=== PATIENT | male | born 1945 | race Caucasian/White ===

== ENCOUNTER 2017-07-04 20:40 | Emergency (ER) | payer BC ==
[~2017-07-04] VITALS: Ht 185.4 cm; Wt 111.0 kg
[2017-07-04 20:42] VITALS: BP 202/103; PULSE 85; RESP 16; TEMP 98.2; O2SAT 96
[2017-07-04] MEDS ORDERED: GUAI1TAB18 (20:58)
[2017-07-04] MEDS ORDERED: CETI10CA3 (20:58)
[2017-07-04 21:04] VITALS: BP 165/92; PULSE 87; RESP 16; O2SAT 95
--- NOTE | 2017-07-04 21:05 | PD ---
HPI Chief Complaint: Complaint Time Seen by Provider: 20:55 Travel History International Travel<30 days: No Contact w/Intl Traveler<30days: No Traveled to known affect area: No History of Present Illness HPI 71-year-old male presents for evaluation of asymptomatic hematuria. Symptoms started this evening. He reports that there is large amount of blood-tinged urine this afternoon when he was urinating. He denies any dysuria, increased urinary frequency, flank pain, abdominal pain, nausea or vomiting, chest pain. He is not on any prescribed or [id number] anticoagulants. He reports that he has a history of BPH, underwent TURP procedure 9 years ago. He reports that very occasionally he will have some hematuria but never to this extent. 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 Sancho Haney. No other complaints at this time. PFSH Past Medical History Diminished Hearing: No Tetanus Vaccination: < 5 Years Influenza Vaccination: Yes Past Surgical History Prostatectomy: Yes (9 years ago) Social History Alcohol Use: No Tobacco Use: No Substance Use: No Allergies-Medications (Allergen,Severity, Reaction): Coded Allergies: No Known Allergies (Unverified , 07/04/17) Reported Meds & Prescriptions Reported Meds & Active Scripts Active Bactrim DS (Sulfamethoxazole-Trimethoprim) 800-160 Mg Tab 1 Tab PO BID Reported Zyrtec (Cetirizine HCl) 10 Mg Capsule Mucinex (Guaifenesin) 1,200 Mg Tab.er.12h 400 Review of Systems Except as stated in HPI: all other systems reviewed are Neg Physical Exam Narrative GENERAL: Well-developed well-nourished male in no acute distress SKIN: Warm and dry. HEAD: Atraumatic. Normocephalic. EYES: Pupils equal and round. No scleral icterus. No injection or drainage. ENT: No nasal bleeding or discharge. Mucous membranes pink and moist. NECK: Trachea midline. No JVD. CARDIOVASCULAR: Regular rate and rhythm. No murmur appreciated. RESPIRATORY: No accessory muscle use. Clear to auscultation. Breath sounds equal bilaterally. GASTROINTESTINAL: Abdomen soft, non-tender, nondistended. Hepatic and splenic margins not palpable. No CVA tenderness. MUSCULOSKELETAL: No obvious deformities. No clubbing. No cyanosis. No edema. NEUROLOGICAL: Awake and alert. No obvious cranial nerve deficits. Motor grossly within normal limits. Normal speech. PSYCHIATRIC: Appropriate mood and affect; insight and judgment normal. Data Data Last Documented VS Vital Signs Date Time Temp Pulse Resp B/P (MAP) Pulse Ox O2 Delivery O2 Flow Rate FiO2 07/04/17 21:04 87 16 165/92 (116) 95 Room Air 07/04/17 20:42 98.2 Orders Orders Complete Blood Count With Diff (07/04/17 20:59) Basic Metabolic Panel (Bmp) (07/04/17 20:59) Act Partial Throm Time (Ptt) (07/04/17 20:59) Prothrombin Time / Inr (Pt) (07/04/17 20:59) Urinalysis - C+S If Indicated (07/04/17 20:59) Urine Culture (07/04/17 21:30) Ceftriaxone Inj (Rocephin Inj) (07/04/17 22:15) Ed Discharge Order (07/04/17 22:10) Labs Laboratory Tests Test 07/04/17 21:10 07/04/17 21:30 White Blood Count 8.7 TH/MM3 Red Blood Count 4.70 MIL/MM3 Hemoglobin 14.9 GM/DL Hematocrit 42.2 % Mean Corpuscular Volume 89.7 FL Mean Corpuscular Hemoglobin 31.7 PG Mean Corpuscular Hemoglobin Concent 35.3 % Red Cell Distribution Width 13.1 % Platelet Count 179 TH/MM3 Mean Platelet Volume 9.0 FL Neutrophils (%) (Auto) 56.6 % Lymphocytes (%) (Auto) 27.1 % Monocytes (%) (Auto) 10.8 % Eosinophils (%) (Auto) 4.4 % Basophils (%) (Auto) 1.1 % Neutrophils # (Auto) 4.9 TH/MM3 Lymphocytes # (Auto) 2.4 TH/MM3 Monocytes # (Auto) 0.9 TH/MM3 Eosinophils # (Auto) 0.4 TH/MM3 Basophils # (Auto) 0.1 TH/MM3 CBC Comment DIFF FINAL Differential Comment Prothrombin Time 10.4 SEC Prothromb Time International Ratio 0.9 RATIO Activated Partial Thromboplast Time 27.7 SEC Blood Urea Nitrogen 20 MG/DL Creatinine 1.46 MG/DL Random Glucose 124 MG/DL Calcium Level 9.9 MG/DL Sodium Level 140 MEQ/L Potassium Level 4.1 MEQ/L Chloride Level 106 MEQ/L Carbon Dioxide Level 25.1 MEQ/L Anion Gap 9 MEQ/L Estimat Glomerular Filtration Rate 47 ML/MIN Urine Color DARK-RED Urine Turbidity CLOUDY Urine pH 6.0 Urine Specific [employer] M[employer] 1.017 Urine Protein 100 mg/dL Urine Glucose (UA) NEG mg/dL Urine Ketones 10 mg/dL Urine Occult Blood LARGE Urine Nitrite POS Urine Bilirubin NEG Urine Urobilinogen LESS THAN 2.0 MG/DL Urine Leukocyte Esterase MOD Urine RBC /hpf Urine WBC /hpf Urine Bacteria MOD /hpf Microscopic Urinalysis Comment CULTURE INDICATED MDM Medical Decision Making Medical Screen Exam Complete: Yes Emergency Medical Condition: Yes Medical Record Reviewed: Yes Differential Diagnosis Hematuria, anemia, renal stone, malignancy Narrative Course Plan is for basic lab work, urinalysis. Laboratories reassuring. Urinalysis reveals cloudy turbidity, 100 protein, large blood, positive nitrites, innumerable WBCs, moderate bacteria and therefore urine culture has been sent. He has no symptoms to suggest prostatitis. The patient be given a dose of Rocephin here and discharged with Bactrim pending culture and sensitivity report. Diagnosis Primary Impression: Hematuria Qualified Codes: R31.0 - Gross hematuria Additional Impression: Urinary tract infection Qualified Codes: N30.01 - Acute cystitis with hematuria Additional Instructions: Medications prescribed. Stay well hydrated. Follow up close with urology and return for any acutely new or worsening symptoms. Med/Other Pt SpecificInfo: Prescription(s) given Scripts Sulfamethoxazole-Trimethoprim (Bactrim DS) 800-160 Mg Tab 1 TAB PO BID for Infection, #20 TAB 0 Refills Prov: Fred Victoria MD 07/04/17 Disposition: 01 DISCHARGE HOME Condition: Stable Nghia Perez Jul 04, 2017 21:04
[2017-07-04 21:48] LABS: AUTOMATED NEUTROPHIL # 4.9 TH/MM3 (1.8-7.7); BASOPHIL # 0.1 TH/MM3 (0-0.2); BASOPHIL % 1.1 % (0.0-2.0); EOSINOPHIL # 0.4 TH/MM3 (0-0.4); EOSINOPHIL % 4.4 % (0.0-4.0); HEMATOCRIT 42.2 % (39.0-51.0); HEMOGLOBIN 14.9 GM/DL (13.0-17.0); LYMPH % 27.1 % (9.0-44.0); LYMPHOCYTE # 2.4 TH/MM3 (1.0-4.8); MEAN CELL VOLUME 89.7 FL (80.0-100.0); MEAN CORPUSCULAR HEMOGLOBIN 31.7 PG (27.0-34.0); MEAN CORPUSCULAR HGB CONC 35.3 % (32.0-36.0); MONO % 10.8 % (0.0-8.0); MONOCYTE # 0.9 TH/MM3 (0-0.9); NEUT % 56.6 % (16.0-70.0); PLATELET COUNT 179 TH/MM3 (150-450); RED CELL DISTRIBUTION WIDTH 13.1 % (11.6-17.2); WHITE BLOOD COUNT 8.7 TH/MM3 (4.0-11.0)
[2017-07-04 21:54] LABS: BILIRUBIN, URINE NEG (NEG); BLOOD, URINE LARGE (NEG); GLUCOSE,URINE NEG (NEG); KETONE, URINE 10 mg/dL (NEG); NITRITE,URINE POS (NEG); URINE LEUKOCYTE ESTERASE MOD (NEG)
[2017-07-04 21:55] LABS: INTERNATIONAL NORMALIZED RATIO 0.9 RATIO; PROTHROMBIN TIME - PATIENT 10.4 SEC (9.8-11.6)
[2017-07-04 21:57] LABS: URINE COLOR DARK-RED (YELLW/STRAW)
[2017-07-04 22:03] LABS: BACTERIA, URINE MOD /hpf
[2017-07-04 22:08] LABS: BICARBONATE 25.1 MEQ/L (21.0-32.0); CALCIUM 9.9 MG/DL (8.5-10.1); CREATININE 1.46 MG/DL (0.60-1.30)
[2017-07-04] MEDS ORDERED: BACT800T5 PO (22:10)
[2017-07-04] MEDS ORDERED: cefTRIAXone INJ 1,000 MG in SODIUM CHLORIDE 0.9% INJ 100 ML IV ONE (22:15)
[2017-07-04 22:57] VITALS: BP 151/90; PULSE 89; RESP 16
== END 2017-07-04 23:03 | disposition home or self-care (01) ==
LOC: NEPC 20:40
DX: N39.0 Urinary tract infection, site not specified (principal); R31.9 Hematuria, unspecified
CPT/HCPCS: 80048; 81001; 85025; 85610; 85730; 87086; 96374; 99284; J0696